=== PATIENT | male | born 1945 | race Caucasian/White ===

== ENCOUNTER 2016-07-25 09:24 | Day surgery (SDC) | payer MEDICARE, OTHER ==
[~2016-07-25 09:24] MED LIST: PROPOFOL 500 MG/50 ML EMU IV ONE
[2016-07-25 11:10] VITALS: TEMP 96.6
[2016-07-25 15:46] VITALS: BP 122/75; PULSE 84; RESP 16; O2SAT 92
== END 2016-07-25 12:20 | disposition home or self-care (01) | DRG 392 ==
LOC: SURG 09:24
PROVIDERS: ATTEND Surgery
DX: R10.13 Epigastric pain (principal); K31.9 Disease of stomach and duodenum, unspecified; R63.4 Abnormal weight loss; K44.9 Diaphragmatic hernia without obstruction or gangrene
CPT/HCPCS: J2704

== ENCOUNTER 2017-04-11 22:50 | Emergency (ER) | payer OTHER ==
[2017-04-11] MEDS: SODIUM CHLORIDE 0.9% 1000 ML SOL IV ONE (23:35)
[2017-04-12] MEDS: LEVOFLOXACIN 500 MG TAB PO ONE (00:20)
[2017-04-12] MEDS ORDERED: LEVOFLOXACIN 500 MG TAB ONE (00:24)
[2017-04-12 00:35] VITALS: BP 124/80; PULSE 85; RESP 20; TEMP 99.7; O2SAT 94
== END 2017-04-12 01:02 | disposition home or self-care (01) | DRG 195 ==
LOC: ED 22:50
DX: J18.9 Pneumonia, unspecified organism (principal); I95.9 Hypotension, unspecified; R05 Cough; F79 Unspecified intellectual disabilities
CPT/HCPCS: 71045; 87430; 87804; 99284; A9270-GY

== ENCOUNTER 2017-06-23 13:50 | Emergency (ER) | payer OTHER ==
[2017-06-23 14:20] VITALS: BP 122/93; PULSE 118; RESP 24; TEMP 98; O2SAT 93
[2017-06-23] MEDS ORDERED: APAP/HYDROCODONE 325/5 TAB PO ONE (15:05)
[2017-06-23] MEDS ORDERED: APAP/HYDROCODONE 325/5 TAB ONE (15:08)
== END 2017-06-23 15:22 | disposition home or self-care (01) | DRG 563 ==
LOC: ED 13:50
DX: S42.302A Unspecified fracture of shaft of humerus, left arm, initial encounter for closed fracture (principal)
CPT/HCPCS: 73060; 73090; 99282; A9270-GY

== ENCOUNTER 2017-06-24 11:32 | Outpatient (CLI) | payer OTHER ==
[2017-06-23 14:20] VITALS: O2SAT 93
== END 2017-06-24 11:33 | disposition home or self-care (01) | DRG 563 ==
LOC: CONVCARE 11:32
PROVIDERS: ATTEND Orthopaedic Surgery
DX: S42.292A Other displaced fracture of upper end of left humerus, initial encounter for closed fracture (principal)
CPT/HCPCS: 73020

== ENCOUNTER 2017-07-13 15:22 | Emergency (ER) | payer OTHER ==
[2017-07-13] MEDS ORDERED: TRAMADOL HYDROCHLORIDE 50 MG TAB ONE (15:52)
[2017-07-13] MEDS ORDERED: TRAMADOL HYDROCHLORIDE 50 MG TAB PO ONE (15:52)
[2017-07-13] MEDS ORDERED: LORAZEPAM 0.5 MG TAB ONE (15:52)
[2017-07-13] MEDS ORDERED: LORAZEPAM 0.5 MG TAB PO ONE (15:52)
[2017-07-13 16:16] VITALS: BP 175/120; PULSE 104; RESP 20; TEMP 99.3; O2SAT 96
== END 2017-07-13 17:24 | disposition home or self-care (01) | DRG 605 ==
LOC: ED 15:22
DX: S80.02XA Contusion of left knee, initial encounter (principal); S80.01XA Contusion of right knee, initial encounter; W19.XXXA Unspecified fall, initial encounter
CPT/HCPCS: 73560; 99282; A9270-GY

== ENCOUNTER 2017-08-19 11:31 | Outpatient (CLI) | payer OTHER ==
[2017-07-13 16:16] VITALS: O2SAT 96
== END 2017-08-19 11:32 | disposition home or self-care (01) | DRG 561 ==
LOC: CONVCARE 11:31
PROVIDERS: ATTEND Orthopaedic Surgery
DX: S42.202D Unspecified fracture of upper end of left humerus, subsequent encounter for fracture with routine healing (principal)
CPT/HCPCS: 73030

== ENCOUNTER 2017-10-21 10:14 | Outpatient (CLI) | payer OTHER ==
[2017-07-13 16:16] VITALS: O2SAT 96
== END 2017-10-21 10:15 | disposition home or self-care (01) | DRG 561 ==
LOC: RAD 10:14
PROVIDERS: ATTEND Orthopaedic Surgery
DX: M80.822 Other osteoporosis with current pathological fracture, left humerus (principal); M19.012 Primary osteoarthritis, left shoulder
CPT/HCPCS: 73030

== ENCOUNTER 2017-12-30 09:49 | Outpatient (CLI) | payer OTHER ==
[2017-07-13 16:16] VITALS: O2SAT 96
== END 2017-12-30 09:50 | disposition home or self-care (01) | DRG 561 ==
LOC: RAD 09:49
PROVIDERS: ATTEND Orthopaedic Surgery
DX: S42.202D Unspecified fracture of upper end of left humerus, subsequent encounter for fracture with routine healing (principal)
CPT/HCPCS: 73030

== ENCOUNTER 2018-02-17 11:43 | Outpatient (CLI) | payer OTHER ==
[2017-07-13 16:16] VITALS: O2SAT 96
== END 2018-02-17 11:44 | disposition home or self-care (01) | DRG 561 ==
LOC: CONVCARE 11:43
PROVIDERS: ATTEND Orthopaedic Surgery
DX: S42.202D Unspecified fracture of upper end of left humerus, subsequent encounter for fracture with routine healing (principal); Z98.890 Other specified postprocedural states
CPT/HCPCS: 73030

== ENCOUNTER 2018-05-19 09:57 | Outpatient (CLI) | payer OTHER ==
[2017-07-13 16:16] VITALS: O2SAT 96
== END 2018-05-19 09:58 | disposition home or self-care (01) | DRG 561 ==
LOC: CONVCARE 09:57
PROVIDERS: ATTEND Orthopaedic Surgery
DX: S42.202D Unspecified fracture of upper end of left humerus, subsequent encounter for fracture with routine healing (principal)
CPT/HCPCS: 73030

== ENCOUNTER 2018-06-01 13:57 | Emergency (ER) | payer OTHER ==
[2018-06-01 14:20] VITALS: BP 91/53; PULSE 110; RESP 24; TEMP 98.5; O2SAT 93
[2018-06-01] MEDS ORDERED: IBUPROFEN 600 MG TAB PO ONE (14:32)
[2018-06-01] MEDS ORDERED: IBUPROFEN 600 MG TAB ONE (14:34)
== END 2018-06-01 16:02 | disposition home or self-care (01) | DRG 605 ==
LOC: ED 13:57
DX: S60.041A Contusion of right ring finger without damage to nail, initial encounter (principal)
CPT/HCPCS: 73140; 99282; A9270-GY

== ENCOUNTER 2018-07-21 11:38 | Outpatient (CLI) | payer OTHER ==
[2018-06-01 14:20] VITALS: O2SAT 93
== END 2018-07-21 11:39 | disposition home or self-care (01) | DRG 561 ==
LOC: CONVCARE 11:38
PROVIDERS: ATTEND Orthopaedic Surgery
DX: S42.202D Unspecified fracture of upper end of left humerus, subsequent encounter for fracture with routine healing (principal)
CPT/HCPCS: 73030

== ENCOUNTER 2018-10-02 16:11 | Emergency (ER) | payer OTHER ==
[2018-10-02] MEDS ORDERED: LORAZEPAM 0.5 MG TAB PO ONE ×2 (16:20→16:45)
[2018-10-02] MEDS ORDERED: LORAZEPAM 0.5 MG TAB ONE ×2 (16:21→16:46)
[2018-10-02 16:45] VITALS: RESP 44; TEMP 98.7
[2018-10-02 18:05] VITALS: BP 178/107; PULSE 106; O2SAT 94
== END 2018-10-02 17:19 | disposition home or self-care (01) | DRG 605 ==
LOC: ED 16:11
DX: S00.93XA Contusion of unspecified part of head, initial encounter (principal); V59.88XA Occupant (driver) (passenger) of pick-up truck or van injured in other specified transport accidents, initial encounter; R40.2412 Glasgow coma scale score 13-15, at arrival to emergency department
CPT/HCPCS: 70450; 99283; A9270-GY